=== PATIENT | female | born 1985 | race Caucasian/White ===

== ENCOUNTER 2016-11-01 15:33 | Emergency (ER) | payer OTHER ==
[~2016-11-01] VITALS: Ht 167.6 cm; Wt 48.2 kg
[~2016-11-01 15:33] MED LIST: MULT1TAB79 PO; OXYC-57 PO
[2016-11-01 15:36] VITALS: TEMP 36.8; Ht 167.6 cm; Wt 48.2 kg
[2016-11-01] MEDS ORDERED: TRAMADOL HCL 50 MG TAB PO STA (15:44)
[2016-11-01] MEDS ORDERED: AMOXICILLIN 500 MG CAP PO STA (15:44)
[2016-11-01] MEDS ORDERED: BENZOCAINE 20% (ORAJEL) 11.9 GM TUBE MT STA (15:44)
[2016-11-01] MEDS ORDERED: AMOX500C3 PO (15:49)
[2016-11-01] MEDS ORDERED: TRAM-10 PO (15:49)
[2016-11-01] MEDS ORDERED: AMOXICILLIN 250 MG CAP PO ONE (15:59)
[2016-11-01] MEDS ORDERED: IBUP-1050 PO (16:19)
[2016-11-01 16:23] VITALS: BP 128/86; PULSE 72; O2SAT 97
--- NOTE | 2016-11-01 17:52 | EMERGENCY ROOM VISIT NOTE ---
History First contact with patient: 15:38 Chief Complaint: DENTAL PAIN Stated Complaint: TEETH PAIN Nursing Triage Summary: Triage note: Pt reports "i saw a dentist last week and he said that all my teeth have something wrong with them." pt reports taking 800mg motrin at approx 1200. History of Present Illness The patient is a 31 year old female who presents to the Emergency Room with complaints of diffuse dental pain for the past 18 months he states [facility] will help her out with her dental problems. Patient has hemophilia. Patient does smoke. Patient was of diffuse dental pain with dental decay. Patient states that then escorted of $15,000 for her dental work. She states she does not have insurance and cannot afford this. Patient states showing makes it worse and nothing makes it better. Patient denies fever, facial swelling, chest pain , dyspnea, dysphagia, headache, neck stiffness. Review of Systems See HPI for pertinent positives & negatives. A total of 10 systems reviewed and were otherwise negative. Past Medical/Surgical History Medical Problems: (1) Hemophilia (2) Nausea and vomiting during (3) Von Willebrand disease Family History Patient reports no known family medical history. Social History Smoking Status: Current Every Day Smoker Marital Status: single Occupation Status: unemployed Current/Historical Medications Scheduled Amoxicillin (Amoxil), 1 CAP PO TID Multiple Vitamins W/ Minerals (Womens Daily Formula), 1 TAB PO DAILY Scheduled PRN Ibuprofen (Advil), 200 MG PO DIRECTED PRN for Pain Tramadol (Ultram), 1 TAB PO Q4H PRN for Pain Allergies Coded Allergies: Ketorolac Tromethamine (Verified Allergy, Severe, HIVES, 11/01/16) "WAS GIVEN IV IN ER, DEVELOPED HIVES WITHIN 30 MINUTES". Physical Exam Vital Signs Date Time Temp Pulse Resp B/P Pulse Ox O2 Delivery O2 Flow Rate FiO2 11/01/16 16:23 72 15 128/86 97 11/01/16 15:36 36.8 77 18 139/96 100 Room Air Pain Rating (0-10): 5.0 Physical Exam VITALS: Vitals are noted on the nurse's note and reviewed by myself. Vital signs stable. GENERAL: White female with tobacco odor, in no acute distress, nondiaphoretic, well-developed well-nourished. SKIN: The skin was without rashes, erythema, edema, or bruising. There is no tenting of the skin. Capillary reflex less than 2 seconds. HEAD: Normocephalic atraumatic. EARS: External auditory canals clear, tympanic membranes pearly arreguin without erythema or effusion bilaterally. EYES: Pupils equal round and reactive to light and accommodation. Conjunctivae without injection, sclerae without icterus. Extraocular movements intact. NOSE: Patent, turbinates without inflammation or discharge. No sinus tenderness. MOUTH: Mucous membranes moist. No Hudson angina Pharynx without erythema or exudate. Uvula midline. Airway patent. Tongue does not deviate. Dental exam: Extensive dental decay with no palpable abscess. Overall dental hygiene poor NECK: Supple without nuchal rigidity. No lymphadenopathy. No thyromegaly. Cervical spine is nontender. No JVD. HEART: Regular rate and rhythm without murmurs gallops or rubs. LUNGS: Clear to auscultation bilaterally without wheezes, rales or rhonchi. No dullness to percussion. No retractions or accessory muscle use. ABDOMEN: Positive bowel sounds x 4. Normal tympanic percussion. Soft, nontender, without masses or organomegaly. Pichardo sign negative. No guarding or rebound tenderness. MUSCULOSKELETAL: No muscle atrophy, erythema, or edema noted. NEURO: Patient was alert and oriented to person place and time. Normal sensation to light and sharp touch. No focal neurological deficits. Medical Decision & Procedures Medications Administered Medications (Trade) Dose Ordered Sig/Martin Route Start Time Stop Time Status Last Admin Dose Admin Benzocaine (Orajel 2% Oral Gel) 1 appln NOW STAT MT 11/01/16 15:44 11/01/16 15:46 DC 11/01/16 16:04 36 APPLN Tramadol HCl (Ultram Tab) 50 mg NOW STAT PO 11/01/16 15:44 11/01/16 15:46 DC 11/01/16 15:58 50 MG Amoxicillin (Amoxil Cap) 500 mg STK-MED ONCE PO 11/01/16 15:59 11/01/16 16:00 DC 11/01/16 15:57 500 MG ED Course Prior records reviewed and summarized as above. Triage Nursing notes reviewed. Additional history obtained from family The patient's history was concerning for dental pain Differential diagnosis: Etiologies such as gingivitis, dental caries, cellulitis, abscess, was angina, as well as others were entertained.. Physical examination: The physical examination was consistent with dental pain from dental care ER treatment provided: Amoxicillin, Ultram On reassessment the patient felt better. Diagnostics interpreted by me: Deferred This appears to be dental pain from dental caries. Patient was started on antibiotics. She is advised follow-up dentistry or oral surgery for definitive care for her ongoing dental issues. She is advised to return to the ER immediately for facial swelling, fevers, neck stiffness, worsening signs or symptoms or as needed. Patient no signs of abscess or airway compromise. She was well-appearing. By the evaluation outlined above emergent etiologies such as abscess, Hudson angina, as well as others were deemed relatively unlikely. The pt informed about the findings as listed above. All questions were answered and pleased with the treatment. Return instructions were outlined and the patient was discharged in stable condition. Outpatient prescription management: Amoxicillin, Ultram Referral: The patient was referred back to dentistry for follow-up in 2 to 3 days for a recheck of the current condition. Medical Decision As above [place] Drug Monitoring Program Search Results: patient reviewed within database, see additional documentation (patient had multiple narcotic prescriptions) Impression Primary Impression: Dental caries Additional Impression: Tooth pain with chewing Departure Information Dispostion Home / Self-Care Condition GOOD Prescriptions Amoxicillin (AMOXIL) 500 Mg Cap 1 CAP PO TID for 10 Days, #30 CAP Prov: Maria C Baires PA-C 11/01/16 Tramadol (Ultram) 50 Mg Tab 1 TAB PO Q4H Y for Pain, #10 TAB For Initial Treatment Prov: Maria C Baires PA-C 11/01/16 Referrals No Doctor, Assigned (PCP) Jay Hodge D.D.S. Forms HOME CARE DOCUMENTATION FORM, IMPORTANT VISIT INFORMATION Patient Instructions Decay Tooth, Visit Dental, [facility] Additional Instructions Amoxicillin 500mg: Take one pill 3 times daily for 10 days for your infection. All antibiotics can cause diarrhea. If this occurs and you feel worse or it does not resolve in 1-2 days follow up with your doctor or return to the Emergency Department as this could be signs of serious underlying problems. Any medication can cause an allergic reaction, stop the pills immediately and return to the ER for rash, hives, breathing difficulties, or swelling. Ultram 50 mg: Take 1-2 pills every four hours for breakthrough pain. Avoid alcohol, operating machinery or dangerous equipment, working on ladders or roofs , DRIVING, or situations where being under the influence may be dangerous. It is recommended to use an [id number] stool softener such as Colace, 100mg twice daily while taking this medication to avoid constipation. Ibuprofen(Motrin, Advil) may be used for fever or pain. Use 600mg every six hours as needed. Take with food. Avoid using more than 2400mg in a 24 hour period. Do not use 2400mg per day for more than three consecutive days without physician direction. Prolonged inappropriate use can lead to stomach upset or ulcers. This medication can be taken if you need to drive, work, or perform activities which may be dangerous when taking narcotic pain medication. (AND/OR) Acetaminophen(Tylenol) may be used for fever or pain. Use 1000mg every six hours as needed. Avoid using more than 3000mg in a 24 hour period. This medication can be taken if you need to drive, work, or perform activities which may be dangerous when taking narcotic pain medication. Naselle teeth twice a day, floss daily and do warm saltwater gargles 3 times a day. See a dentist as soon as possible for definitive care for your dental problem or oral surgery. Return to ER sooner for facial swelling, fever, redness, worsening signs or symptoms or as needed. Problem Qualifiers
== END 2016-11-01 16:25 | disposition home or self-care (01) ==
LOC: C.EDB 15:33 → C.EDD 16:25
DX: K02.9 Dental caries, unspecified (principal); K08.89 Other specified disorders of teeth and supporting structures; D66 Hereditary factor VIII deficiency; F17.200 Nicotine dependence, unspecified, uncomplicated

== ENCOUNTER → 2017-09-04 | Outpatient (CLI) | payer OTHER ==
[~2017-09-04] MED LIST changes: +IBUP-1050 PO; -OXYC-57 PO
== END ==
LOC: C.LAB 16:40
PROVIDERS: ATTEND Family Medicine
DX: R30.0 Dysuria (principal)

== ENCOUNTER 2017-11-27 15:42 | Emergency (ER) | payer OTHER ==
[~2017-11-27] VITALS: Ht 167.6 cm; Wt 53.7 kg
[2017-11-27 15:54] VITALS: Ht 167.6 cm; Wt 53.7 kg
[2017-11-27] MEDS ORDERED: SODIUM CHLORIDE 0.9% 1000ML 1,000 ML IV ONE (16:15)
--- NOTE | 2017-11-27 16:26 | EMERGENCY ROOM VISIT NOTE ---
History First contact with patient: 15:59 Chief Complaint: VAGINAL BLEEDING Stated Complaint: POSSIBLE MISCARRAGE, BLEEDING OUT History of Present Illness The patient is a 32 year old female who presents to the Emergency Room with complaints of heavy vaginal bleeding that started yesterday. She has been passing fist size clots. She reports severe lower abdominal cramping. The patient is unsure if she is , however she has been using protection. The patient is . She had a very difficult delivery and reports significant hemorrhaging. The patient has a history of von Willebrand's disease. Her last menstrual period was several months ago. She denies any chest pain or shortness of breath. She has not taken anything for pain. Review of Systems 10 system review performed and negative unless noted in HPI or below Past Medical/Surgical History Medical Problems: (1) Hemophilia (2) Nausea and vomiting during (3) Von Willebrand disease Family History Patient reports no known family medical history. Social History Smoking Status: Current Every Day Smoker Marital Status: single Occupation Status: unemployed Current/Historical Medications Scheduled Multiple Vitamins W/ Minerals (Womens Daily Formula), 1 TAB PO DAILY Scheduled PRN Hydrocodone/Acetaminophen 5MG/325MG ([place] 5MG/325MG), 1-2 TABLET PO Q4H PRN for Pain Physical Exam Vital Signs Date Time Temp Pulse Resp B/P (MAP) Pulse Ox O2 Delivery O2 Flow Rate FiO2 11/27/17 18:59 36.8 80 22 110/70 99 11/27/17 18:34 80 22 110/70 99 Room Air 11/27/17 15:54 36.8 122 20 119/81 97 Room Air Physical Exam GENERAL: 32-year-old female, anxious in appearance,, in no acute distress, nondiaphoretic, well-developed well-nourished. SKIN: The skin was without rashes, erythema, edema, or bruising. HEAD: Normocephalic atraumatic. EYES: Conjunctivae without injection, sclerae without icterus. Extraocular movements intact. MOUTH: Mucous membranes slightly dry NECK: Supple without nuchal rigidity. HEART: Tachycardic, regular rhythm without murmurs gallops or rubs. LUNGS: Clear to auscultation bilaterally without wheezes, rales or rhonchi. No accessory muscle use. ABDOMEN: Positive bowel sounds x 4.Soft, tenderness palpation in the suprapubic region, without organomegaly. No guarding or rebound tenderness. MUSCULOSKELETAL: No muscle atrophy, erythema, or edema noted. Strength 5/5 throughout. NEURO: Patient was alert and oriented to person place and time. Normal sensation to touch. No focal neurological deficits. Medical Decision & Procedures ER Provider Diagnostic Interpretation: Transvaginal ultrasound IMPRESSION: Cystic change in the endometrium can be seen in the setting of adenomyosis among other etiologies. No additional findings to suggest this diagnosis. Alternatively, this could represent endometrial cavity blood products. No other abnormality. Electronically signed by: Bro Nolan M.D. 11/27/2017 5:51 PM Dictated Date/Time: 11/27/2017 5:47 PM Laboratory Results 11/27/17 16:15 Red Blood Count 4.49, Mean Corpuscular Volume 92.2, Mean Corpuscular Hemoglobin 31.8, Mean Corpuscular Hemoglobin Concent 34.5, Mean Platelet Volume 12.8, Neutrophils (%) (Auto) 62.6, Lymphocytes (%) (Auto) 33.9, Monocytes (%) (Auto) 3.1, Eosinophils (%) (Auto) 0.4, Basophils (%) (Auto) 0.0, Neutrophils # (Auto) 3.07, Lymphocytes # (Auto) 1.66, Monocytes # (Auto) 0.15, Eosinophils # (Auto) 0.02, Basophils # (Auto) 0.00 11/27/17 16:15 Test 11/27/17 16:15 11/27/17 16:29 White Blood Count 4.90 K/uL (4.8-10.8) Red Blood Count 4.49 M/uL (4.2-5.4) Hemoglobin 14.3 g/dL (12.0-16.0) Hematocrit 41.4 % (37-47) Mean Corpuscular Volume 92.2 fL (80-100) Mean Corpuscular Hemoglobin 31.8 pg (25-34) Mean Corpuscular Hemoglobin Concent 34.5 g/dl (32-36) Platelet Count 132 K/uL (130-400) Mean Platelet Volume 12.8 fL (7.4-10.4) Neutrophils (%) (Auto) 62.6 % Lymphocytes (%) (Auto) 33.9 % Monocytes (%) (Auto) 3.1 % Eosinophils (%) (Auto) 0.4 % Basophils (%) (Auto) 0.0 % Neutrophils # (Auto) 3.07 K/uL (1.4-6.5) Lymphocytes # (Auto) 1.66 K/uL (1.2-3.4) Monocytes # (Auto) 0.15 K/uL (0.11-0.59) Eosinophils # (Auto) 0.02 K/uL (0-0.5) Basophils # (Auto) 0.00 K/uL (0-0.2) RDW Standard Deviation 44.2 fL (36.4-46.3) RDW Coefficient of Variation 13.2 % (11.5-14.5) Immature Granulocyte % (Auto) 0.0 % Immature Granulocyte # (Auto) 0.00 K/uL (0.00-0.02) Est Creatinine Clear Calc Drug Dose 72.1 ml/min Estimated GFR () 91.9 Estimated GFR (Non- 79.3 BUN/Creatinine Ratio 8.3 (10-20) Calcium Level 9.3 mg/dl (8.5-10.1) Total Bilirubin 0.6 mg/dl (0.2-1) Aspartate Amino Transf (AST/SGOT) 22 U/L (15-37) Alanine Aminotransferase (ALT/SGPT) 21 U/L (12-78) Alkaline Phosphatase 51 U/L (45-117) Total Protein 8.4 gm/dl (6.4-8.2) Albumin 4.5 gm/dl (3.4-5.0) Globulin 3.9 gm/dl (2.5-4.0) Albumin/Globulin Ratio 1.2 (0.9-2) Human Chorionic Gonadotropin, Qual NEG (NEG) Bedside Hemoglobin 15.0 g/dl (12.0-16.0) Bedside Hematocrit 44 % (37-47) Bedside Sodium 142 mEq/L (135-144) Bedside Potassium 3.6 mEq/L (3.3-5.0) Bedside Chloride 104 mEq/L (101-112) Bedside Total CO2 24 mEq/l (24-31) Anion Gap 18.0 mmol/L (16-25) Bedside Blood Urea Nitrogen 7 mg/dl (7-18) Bedside Creatinine 0.9 mg/dl (0.6-1.3) Bedside Glucose (other) 93 mg/dl (70-99) Bedside Ionized Calcium (Sami) 1.21 mmol/l (1.12-1.32) Medications Administered Medications (Trade) Dose Ordered Sig/Martin Route Start Time Stop Time Status Last Admin Dose Admin Sodium Chloride 1,000 ml @ 999 mls/hr Q1H1M ONCE IV 11/27/17 16:15 11/27/17 17:15 DC 11/27/17 16:35 999 MLS/HR Morphine Sulfate (MoRPHine SULFATE INJ) 4 mg Q1H PRN IV 11/27/17 16:15 11/27/17 19:33 DC 11/27/17 18:40 4 MG Ondansetron HCl (Zofran Inj) 4 mg Q2H PRN IV 11/27/17 16:15 11/27/17 19:33 DC 11/27/17 18:40 4 MG ED Course Patient was seen and examined Vital signs including blood pressure were reviewed medications list was verified with patient Labs were obtained, and a saline lock was established An i-STAT was performed The patient was put on a monitor She was medicated with morphine and Zofran. She was hydrated with 1 L of normal saline. Imaging was performed and reviewed Upon reevaluation, the patient was having more pain after the ultrasound. She was medicated again with morphine and Zofran. We thoroughly reviewed her workup. She looked relieved, was comfortable being discharged home. I reviewed discharge instructions the patient. They voiced understanding and had no further questions. Medical Decision Differential diagnosis: Menorrhagia, uterine fibroids, spontaneous , missed , anemia, abnormal vaginal bleeding This patient is a 32-year-old female who presents to the emergency department complaining of heavy vaginal bleeding and cramping. On exam, she was tachycardic. Her lower abdomen was fairly tender. Her workup reveals no anemia or leukocytosis. She is not . Ultrasound is consistent with possible adenomyosis versus blood products I believe she is stable to be discharged home. It was recommended that she have a repeat H&H on Saturday. She was comfortable with this plan. She requested something for pain. She will be given a very short course of pain medication to get her through the next few days. I highly recommended [facility] follow-up in addition to her PCP. She voiced understanding, and was discharged in good condition This chart was completed in part utilizing Dragon Speech Voice Recognition software. Attempts were made to minimize the grammatical errors, random word insertions, pronoun errors and incomplete sentences. Any formal questions or concerns about the content, text or information contained within the body of this dictation should be directly addressed to the provider for clarification. Impression Primary Impression: Abnormal vaginal bleeding Departure Information Dispostion Home / Self-Care Condition GOOD Prescriptions Hydrocodone/Acetaminophen 5MG/325MG ([place] 5MG/325MG) Tab 1-2 TABLET PO Q4H Y for Pain, #15 TAB For Initial Treatment Prov: Josephine Norwood PA-C 11/27/17 Referrals No Doctor, Assigned (PCP) Josephine Ortiz M.D. Patient Instructions [facility] Additional Instructions You have been evaluated in the emergency department for heavy vaginal bleeding. As discussed, you are not anemic. test was also negative. Please have repeat blood work (H&H) on Saturday Please follow-up with your primary care physician in 2-3 days for recheck Please also follow-up with your [facility] doctor. Call tomorrow morning for a follow-up appointment. Please take [place] 1-2 tabs every 4 hours as needed for pain. Please do not drink alcohol or drive will taking this medication. This medication may also cause constipation. Do not hesitate to return to the emergency department with any new, worsening or concerning symptoms It was a pleasure participating in your care today
[2017-11-27] MEDS: MoRPHine SULFATE 4 MG/ML 1 ML CARP\\VIAL IV PRN ×2 (16:35→18:40)
[2017-11-27] MEDS: ONDANSETRON INJ 2 MG/ML 2 ML VIAL IV PRN ×2 (16:35→18:40)
[2017-11-27 16:43] LABS: EOS % 0.4 %; EOS ABS # 0.02 K/uL (0-0.5); HEMATOCRIT 41.4 % (37-47); HEMOGLOBIN 14.3 g/dL (12.0-16.0); LYMPH % 33.9 %; LYMPH ABS # 1.66 K/uL (1.2-3.4); MEAN CELL VOLUME 92.2 fL (80-100); MEAN CORPUSCULAR HEMOGLOBIN 31.8 pg (25-34); MEAN CORPUSCULAR HGB CONC 34.5 g/dl (32-36); MEAN PLATELET VOLUME 12.8 fL (7.4-10.4); MONO % 3.1 %; MONO ABS # 0.15 K/uL (0.11-0.59); NEUT % 62.6 %; NEUT ABS # 3.07 K/uL (1.4-6.5); PLATELET COUNT 132 K/uL (130-400); RED CELL DISTRIBUTION WIDTH CV 13.2 % (11.5-14.5); RED CELL DISTRIBUTION WIDTH SD 44.2 fL (36.4-46.3)
[2017-11-27 16:55] LABS: ISTAT CREATININE 0.9 mg/dl (0.6-1.3); ISTAT IONIZED CALCIUM 1.21 mmol/l (1.12-1.32); ISTAT POTASSIUM 3.6 mEq/L (3.3-5.0)
[2017-11-27 17:03] LABS: ALBUMIN 4.5 gm/dl (3.4-5.0); CALCIUM 9.3 mg/dl (8.5-10.1); CREATININE 0.95 mg/dl (0.60-1.20); POTASSIUM 3.5 mmol/L (3.5-5.1)
[2017-11-27 17:06] LABS: TOTAL PROTEIN 8.4 gm/dl (6.4-8.2)
--- NOTE | 2017-11-27 17:52 | DIAGNOSTIC IMAGING REPORT ---
TRANSVAG-FEMALE PELVIS CLINICAL HISTORY: 32 years-old Female presenting with heavy bleeding. TECHNIQUE: Real-time grayscale and color and spectral Doppler ultrasound imaging of the pelvis was performed first using a transabdominal probe and subsequently transvaginal for better characterization. COMPARISON: None. FINDINGS: Uterus: Normal. Retroverted. The uterus measures 7.7 x 4.6 x 5.8 cm. Endometrial stripe measures 7 mm in thickness. Endometrium demonstrates cystic change in the endometrium versus hypoechoic endometrial cavity contents. Cervix normal. Right adnexa: Right ovary normal. Right ovary measures 2.2 x 1.8 x 2.7 cm. Normal color Doppler flow and arterial and venous waveforms within the ovarian parenchyma. Left adnexa: Left ovary normal. Left ovary measures 4.0 x 2.2 x 2.2 cm. Normal color Doppler flow and arterial and venous waveforms within the ovarian parenchyma. Other: No free fluid. IMPRESSION: Cystic change in the endometrium can be seen in the setting of adenomyosis among other etiologies. No additional findings to suggest this diagnosis. Alternatively, this could represent endometrial cavity blood products. No other abnormality. Electronically signed by: Bro Nolan M.D. 11/27/2017 5:51 PM Dictated Date/Time: 11/27/2017 5:47 PM
[2017-11-27] MEDS ORDERED: HYDR-5688 PO (18:48)
[2017-11-27 18:59] VITALS: BP 110/70; PULSE 80; TEMP 36.8; O2SAT 99
== END 2017-11-27 19:00 | disposition home or self-care (01) ==
LOC: C.EDB 15:43
DX: N93.9 Abnormal uterine and vaginal bleeding, unspecified (principal); R10.30 Lower abdominal pain, unspecified; D68.0 Von Willebrand disease; F17.200 Nicotine dependence, unspecified, uncomplicated